=== PATIENT | female | born 1985 | race Caucasian/White ===

== ENCOUNTER 2018-03-17 16:41 | Emergency (ER) | payer OTHER, SELFPAY ==
[2018-03-17 16:45] VITALS: BP 110/73; PULSE 101; RESP 20; TEMP 37.1; O2SAT 99; BMI 28.2
[2018-03-17 16:48] VITALS: O2SAT 98
--- NOTE | 2018-03-17 17:14 | CT_ITS ---
STUDY: CT FACIAL BONES WITHOUT CONTRAST REASON FOR EXAM: Female, 32 years old. Fall going up steps, laceration to bridge of nose/right eye. RADIATION DOSAGE (If Supplied By Facility): CTDIvol = ( 29.38 ) mGy, DLP = ( 466.65 ) mGycm TECHNIQUE: The patient was scanned in a multi detector CT scanner. Sagittal and coronal images were reconstructed. Individualized dose optimization techniques were used for this CT. COMPARISON: None. FINDINGS: There is mild soft tissue swelling of the right supraorbital tissue/brow extending into the right bridge of the nose. A cluster of punctate gas lucencies near the right bridge of the nose are consistent with laceration/penetrating injury Normal orbital harris and orbital contents. Normal nasal bones and anterior nasal spine. Normal facial bones. There is no demonstrated fracture. Mucoperiosteal thickening and minimal fluid seen in the bilateral maxillary sinuses. Small volume retained mucus also present in the left maxillary antrum. There is mild mucoperiosteal thickening along the inferior margins of several ethmoid air cells and in the inferior recesses of the bilateral frontal sinuses. CT/Sinus/Facial Bone IMPRESSION: 1. Soft tissue swelling at the right brow extending into the bridge of the nose with additional findings of laceration. No demonstrated facial bone fracture. 2. Mild paranasal sinusitis. Electronically Signed: Keyshawn Kuhn MD at 18:17 EST , Service support ,
--- NOTE | 2018-03-17 17:38 | ED.VISSUMM ---
- ER Visit Summary Date of Service: 03/17/18 Chief Complaint: Facial laceration History of Present Illness: The patient is a 32 F fall at school picking up child. Going up steps when she fell forward hitting a step. No loss of conscious. Mild headache. No nausea or vomiting. No anticoagulation. Tetanus unknown. Appendectomy in the past. No past medical history. No neck or back pain. Physical Examination: General: Alert and oriented ?3, no acute distress HEENT: Normocephalic, 4 cm laceration right brow slanted towards midline of forehead. No active bleeding. No depression of skull or tenderness around the wound. Dried blood on the maxillary. Abrasion nasal bridge. No septal hematoma. No hemotympanum. Moist mucosa membranes Neck: supple, nontender. Cardiovascular: Regular rate and rhythm, no murmurs Respiratory: Normal breath sounds, symmetric, no distress Abdomen: Soft, nontender, nondistended Extremities: Nontender, no edema, pulses intact ?4 Neuro: no focal neurological deficits. Test Results: CT facial bones: No fracture. Emergency Department Course and Treatment: Supraorbital block was performed. A total of 7, 6-0 nylon sutures simple interrupted was placed with good approximation. Patient tolerated procedure well. Tetanus updated. CT facial bones obtained. No fracture. Patient mild headache discussed concussion symptoms, brain rest. Patient will use Tylenol as needed. She is given follow-up with plastic surgeon as an outpatient due to facial laceration. Treatment Plan: [] Disposition: Discharge Impression: 1. Concussion without loss of consciousness 2. Facial laceration status post repair 3. Tetanus update This note was generated with [employer] dictation software. It may contain incorrect words, spelling, and punctuation that were not noted in review of the chart prior to signing ED Disposition - Plan for ED Patient: Disposition: Home or Assisted Living Chief Complaint: Fall Diagnosis: Concussion without loss of consciousness, initial encounter, Facial laceration, Need for Tdap vaccination Instructions: ED Laceration Facial Sutr Tape, ED Concussion Referrals: Care Physician,No Primary [Primary Care Provider] - Kulwant Edmonds MD [STAFF PHYSICIAN] - 5-7 Days
[2018-03-17] MEDS: Diphth,Pertuss(Acell),Tet Vac 0.5 ML Vial IM (17:58)
[2018-03-17] MEDS: BACITRACIN 15 GM Tube 1 APPLIC TOPICAL (18:01)
[2018-03-17 18:12] VITALS: BP 114/82; PULSE 91; O2SAT 98
[2018-03-17] MEDS: Bupivacaine Mpf 0.5% 30 ML VIAL INFILT (18:55)
[2018-03-17 18:56] VITALS: BP 111/87; PULSE 95; RESP 14; O2SAT 98
--- NOTE | 2018-03-17 18:56 | ED.RN ---
PT GIVEN WRITTEN AND VERBAL DISCHARGE INSTRUCTIONS. PT DENIES ANY FURTHER QUESTIONS. PT AMBULATES OUT OF DEPT WITH .
== END 2018-03-17 18:57 | disposition home or self-care (01) ==
PROVIDERS: Emergency Provider Emergency Medicine
DX: S06.0X0A Concussion without loss of consciousness, initial encounter (principal); S01.111A Laceration without foreign body of right eyelid and periocular area, initial encounter; S00.31XA Abrasion of nose, initial encounter; W10.9XXA Fall (on) (from) unspecified stairs and steps, initial encounter; Y93.9 Activity, unspecified; Y92.219 Unspecified school as the place of occurrence of the external cause; Y99.0 Civilian activity done for income or pay; Z23 Encounter for immunization
CPT/HCPCS: 12013; 70486; 90471; 90715; 99285